=== PATIENT | female | born 1970 | race American Indian/Alaskan Native ===

== ENCOUNTER 2018-10-30 02:10 | Emergency (ER) | payer OTHER ==
[2018-10-30 02:19] VITALS: BP 132/87
[2018-10-30] MEDS ORDERED: PERCOCET 5/325 PO ONE (06:06)
[2018-10-30] MEDS ORDERED: IBUPROFEN PO ONE (06:06)
[2018-10-30] MEDS ORDERED: ZOFRAN ODT PO ONE (06:07)
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
== END 2018-10-30 07:29 | disposition home or self-care (01) ==
LOC: ED 02:10
DX: S83.91XA Sprain of unspecified site of right knee, initial encounter (principal); M62.838 Other muscle spasm; M54.2 Cervicalgia; E05.90 Thyrotoxicosis, unspecified without thyrotoxic crisis or storm; F17.200 Nicotine dependence, unspecified, uncomplicated; Z79.1 Long term (current) use of non-steroidal anti-inflammatories (NSAID); Z79.899 Other long term (current) drug therapy; V89.2XXA Person injured in unspecified motor-vehicle accident, traffic, initial encounter; Y93.89 Activity, other specified; Y92.488 Other paved roadways as the place of occurrence of the external cause; Y99.8 Other external cause status
CPT/HCPCS: 72040; 72100; 99283; Q0162